=== PATIENT | female | born 1975 | race African-American/Black ===

== ENCOUNTER → 2018-01-10 | Outpatient (CLI) | payer OTHER ==
[~2018-01-10] VITALS: Ht 157.5 cm; Wt 88.5 kg
[~2018-01-10] MED LIST: AMITRIPTYLINE H25 M2 PO; HYDRALAZINE 2525 MG PO; HYDROCHLOROTHIA25 M2 PO; NORVASC10 MG PO; PROAIR HFA8.5 GM INH
--- NOTE | ~2018-01-10 | EKG ---
[address] [place] [address] ELECTROCARDIOGRAM REPORT Name: JEREMIAS DINH Room #: REG CLRut Farmer#: [id number] Admission: 01/10/18 Attend Phys: Kam Babin Discharge: Date of : 75 Report #: [id number] THIS REPORT FOR: //name// [facility] Test Date: 2018-01-10 Test Time: 11:17:26 Pat Name: JEREMIAS DINH Department: Room: Gender: F Kettle Skimmer: Ludivina OLSEN : 1975 Requested By: Kam Babin Order Number: [id number] MD: Kam Babin Measurements Intervals [place] Rate: 103 P: 80 MO: 144 QRS: 53 QRSD: 95 T: 264 QT: 335 QTc: 439 Interpretive Statements Sinus tachycardia Left ventricular hypertrophy Nonspecific ST-T wave changes No previous ECG available for comparison Electronically Signed On 01-10-2018 12:22:20 CLINICAL MASSAGE THERAPIST by Kam Babin [email or web address] <ELECTRONICALLY SIGNED> By: Kam Babin MD 01/10/18 1222 1117 1117 Kam Babin MD /[facility]
--- NOTE | ~2018-01-10 | CATHLAB ---
[facility] [address] [place] [address] INVASIVE PROCEDURE REPORT Name: JEREMIAS DINH Room #: REG ABEL Farmer#: [id number] Admission: 01/10/18 Attend Phys: Kam Power Discharge: Date of : 75 Date of Service: 01/12/18 1406 Report #: [id number] THIS REPORT FOR: //name// APPROVED REPORT Study performed: 01/10/2018 12:22:13 Patient Details Patient Status: Out-Patient Room #: The patient is a 42 year-old female Event Personnel Kam Babin Die Mechanic, Kamini Puga RTR, Helder Huang Amber Monitor, Jose Arciniega RN RN, Mary Wang RT(R)() Monitor Procedures Performed Art Access - R femoral artery* 27115 Initial Mod Sed Same Phys/QHP Gr5y 109523 Left Heart Cath w/or w/o Coronaries [id number] [facility] Hemostasis with Manual pressure, supervision of conscious sedation Indication Positive stress test, Chest pain Procedure Narrative The patient was brought electively to the Cardiac Catheterization Laboratory and was prepped and draped in a sterile manner. The Right Groin^ was infiltrated with 1% Lidocaine subcutaneous anesthesia. A PINNACLE 4FR Sheath #[id number] sheath was inserted into the RFA^. Coronary angiography was performed using coronary diagnostic catheters. The right coronary system was accessed and visualized with a JR 4 catheter. The left coronary system was accessed and visualized with a JL 4 catheter. The left ventricle was accessed and visualized with a JR 4 catheter. Left ventricular/Aortic Valve gradient assessed via catheter pullback. Hemostasis was obtained with manual pressure following sheath removal without any complications. The patient tolerated the procedure well and there were no complications associated with the procedure. There was no hematoma. Intraoperative Conscious Sedation Sedation start time: 12:47 Case end Time: 13:14 Versed 2 mg [facility] [place] [address] INVASIVE PROCEDURE REPORT Name: JEREMIAS DINH Room #: REG [id number] Admission: 01/10/18 Attend Phys: Kam Power Discharge: Date of : 75 Date of Service: 01/12/18 1406 Report #: [id number] Fluoro Time: 2.03 minutes Dose: DAP 2469.00 cGycm2 351 mGy Contrast Type and Amount: Omnipaque 50 ml Coronary Angiography The patient's coronary anatomy is right dominant. Diagnostic Cath Left Main Normal origin and monitor large-caliber. His long in length and bifurcates into left anterior descending left circumflex and is free of high-grade disease LAD Moderate caliber vessel normal origin coursing the anterior interventricular sulcus tapering as it reaches the apex and terminates as a bifurcating small vessel with only luminal irregularities at the apex Diagonal 1 Small-caliber vessel coursing on anterolateral wall. High-grade disease with a residual irregularities Diagonal 2 Diminutive small vessel without significant lesions Circumflex Moderate caliber vessel normal origin and gives rise to an early first marginal branches function is a ramus. The vessel continues in the AV groove posteriorly giving rise to a small insignificant posterior lateral marginal and a terminal posterior wall branches along the crux of the heart no high-grade lesions are noted OM1 Small-caliber short vessel and functions as a ramus distribution free of high-grade disease OM2 Significance with diminutive vessel OM3 Moderate to small caliber vessel courses in the posterior aspect of the left ventricle with luminal irregularities but no high-grade lesions noted Right Coronary Moderate caliber vessel of normal origin courses any in the AV groove giving rise to several small insignificant caliber RV marginal branches. Then continues posteriorly at the crux of the heart gives rise to small to moderate caliber os is setting artery that extends towards the apex. This is free of high-grade disease. The distal circulation is a small-caliber bifurcating vessel which includes a small string-like vessel to the AV node R PDA Small to moderate caliber vessel long in length no high-grade lesions Left Ventriculography Left Ventriculography was not performed. Hemodynamics The aortic pressure is 119/75 mmHg with a mean of 55 mmHg. The left [facility] [address] [place] [address] INVASIVE PROCEDURE REPORT Name: JEREMIAS DINH Room #: REG ABEL Farmer#: [id number] Admission: 01/10/18 Attend Phys: Kam Power Discharge: Date of : 75 Date of Service: 01/12/18 1406 Report #: [id number] ventricular pressure is 109/12 mmHg with a mean of mmHg. The left ventricular end diastolic pressure is 30 mmHg. Conclusion 1. Minimal coronary artery disease involving luminal irregularities of the mid and distal LAD 2. Normal hemodynamics Recommendations Cardiac Risk Reduction Program <ELECTRONICALLY SIGNED> By: Kam Babin MD 01/12/18 140 05 05 Kam Babin MD /INF
[2018-01-10 11:26] VITALS: BP 108/66
== END | disposition home or self-care (01) ==
LOC: CATH 10:55
DX: I25.10 Atherosclerotic heart disease of native coronary artery without angina pectoris (principal); I10 Essential (primary) hypertension; E78.5 Hyperlipidemia, unspecified; K21.9 Gastro-esophageal reflux disease without esophagitis; Z98.890 Other specified postprocedural states; Z88.8 Allergy status to other drugs, medicaments and biological substances; Z79.899 Other long term (current) drug therapy